=== PATIENT | female | born 1990 | race Caucasian/White ===

== ENCOUNTER 2017-04-09 00:48 | Emergency (ER) | payer SELFPAY ==
--- NOTE | 2017-04-09 00:57 | C.PDOC ---
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 Patient denies fever, chills , nausea, vomiting. Time Seen by Provider: 04/09/17 00:56 History Per: Patient History/Exam Limitations: no limitations Onset/Duration Of Symptoms: Hrs Current Symptoms Are (Timing): Still Present Severity: Mild Pain Scale Rating Of: 3 Quality: Other (+discomfort ). denies: "Pain" Associated Symptoms: denies: Nausea Modifying Factors: None Exacerbating Factors: None Alleviating Factors: None Recent travel outside of the [place]: No Additional History Per: Patient Past Medical History Reviewed: Historical Data, Nursing Documentation, Vital Signs Vital Signs: Last Vital Signs Temp 99.1 F 04/09/17 01:46 Pulse 68 04/09/17 02:01 Resp 14 04/09/17 02:01 BP 107/68 04/09/17 02:01 Pulse Ox 97 04/09/17 02:01 - Medical History PMH: No Chronic Diseases Surgical History: No Surg Hx Family History: States: Unknown Family Hx Review Of Systems Constitutional: Negative for: Fever, Chills Cardiovascular: Positive for: Chest Pain (right-sided ). Negative for: Palpitations Respiratory: Positive for: Shortness of Breath. Negative for: Cough Gastrointestinal: Negative for: Nausea, Vomiting Musculoskeletal: Negative for: Back Pain Skin: Negative for: Rash, Lesions, Jaundice, Bruising Neurological: Negative for: Weakness, Numbness Physical Exam - Physical Exam Appears: Non-toxic, No Acute Distress Skin: Warm, Dry Head: Normacephalic Eye(s): bilateral: Normal Inspection Oral Mucosa: Moist Neck: Supple Chest: Symmetrical, No Deformity, Tenderness (mild, reproducible discomfort to midsternal region ) Cardiovascular: Rhythm Regular, No Murmur Respiratory: No Rales, No Rhonchi, No Wheezing, Other (+patient is speaking in complete sentences ) Back: No Vertebral Tenderness Extremity: Normal ROM, Capillary Refill (less than 2 seconds ) Neurological/Psych: Oriented x3 Gait: Steady ED Course And Treatment - Laboratory Results Result Diagrams: 04/09/17 01:22 04/09/17 01:22 ECG: Interpreted By Me, Viewed By Me ECG Rhythm: Sinus Rhythm (80), Nonspecific Changes (occ pac's) Pulse Ox Interpretation: Normal - Radiology CXR: Interpreted by Me, Viewed By Me CXR Interpretation: No: Infiltrates, Fracture, Pnemothorax Progress Note: EKG and labs ordered and reviewed. Patient received Aspirin PO. Reevaluation Time: 02:44 Reassessment Condition: Improved Disposition Counseled Patient/Family Regarding: Studies Performed, Diagnosis, Need For Followup, Rx Given - Disposition Referrals: [facility] [Outside] Disposition: HOME/ ROUTINE Disposition Time: 00:57 Condition: FAIR Prescriptions: Pantoprazole Sodium [Protonix] 20 mg PO DAILY #15 ect Instructions: Gastroesophageal Reflux Disease (ED) - Clinical Impression Clinical Impression: GERD (gastroesophageal reflux disease), Atypical chest pain - Scribe Statement The provider has reviewed the documentation as recorded by the Scribe (Mar Canales) Provider Attestation: All medical record entries made by the Scribe were at my direction and personally dictated by me. I have reviewed the chart and agree that the record accurately reflects my personal performance of the history, physical exam, medical decision making, and the department course for this patient. I have also personally directed, reviewed, and agree with the discharge instructions and disposition.
[2017-04-09 01:08] VITALS: BMI 17.6
[2017-04-09] MEDS ORDERED: Aspirin 325 mg EC Tablets PO STA (01:08)
[2017-04-09] MEDS ORDERED: Aspirin 325 mg EC Tablets PO ONE (01:20)
[2017-04-09 01:29] LABS: BASO % 0.3 % (0.0-2.0); EOS # 0.1 K/uL (0.0-0.7); EOS % 1.1 % (0.0-4.0); HEMOGLOBIN 12.2 g/dL (11.0-16.0); LYMPH # 3.8 K/uL (1.0-4.3); LYMPH % 44.6 % (20.0-40.0); MEAN CELL VOLUME 81.9 fL (81.0-99.0); MEAN CORPUSCULAR HEMOGLOBIN 26.7 pg (27.0-31.0); MEAN CORPUSCULAR HGB CONC 32.6 g/dL (33.0-37.0); MEAN PLATELET VOLUME 9.2 fL (7.2-11.7); MONO # 0.5 K/uL (0.0-0.8); MONO % 6.1 % (0.0-10.0); NEUT # 4.1 K/uL (1.8-7.0); NEUT % 47.9 % (50.0-75.0); NRBC % 0.1 % (0.0-2.0); RBC 4.56 Mil/uL (3.80-5.20); RED CELL DISTRIBUTION WIDTH 13.8 % (11.5-14.5); WHITE BLOOD COUNT 8.5 K/uL (4.8-10.8)
[2017-04-09 01:32] LABS: ALBUMIN 3.8 g/dL (3.5-5.0)
[2017-04-09 01:35] LABS: ALB/GLOB RATIO 1.2 (1.0-2.1); ALT/SGPT 22 U/L (9-52); AST/SGOT 21 U/L (14-36); BLOOD UREA NITROGEN 11 mg/dL (7-17); GFR AFRICAN-AMERICAN > 60; GFR NON-AFRICAN AMERICAN > 60
[2017-04-09 01:36] LABS: CALCIUM 8.9 mg/dl (8.6-10.4)
[2017-04-09 01:42] LABS: PARTIAL THROMBOPLASTIN TIME 28 SECONDS (21-34); PROTHROMBIN TIME 11.4 SECONDS (9.7-12.2)
[2017-04-09 02:04] LABS: D DIMER < 200 ng/mlDDU (0-243)
[2017-04-09 02:05] LABS: HCG,QUALITATIVE URINE NEGATIVE (NEGATIVE)
[2017-04-09 02:06] LABS: SQUAMOUS EPITHIAL < 1 /hpf (0-5); URINE BACTERIA RARE (<OCC); URINE BILIRUBIN NEGATIVE (NEGATIVE); URINE BLOOD NEGATIVE (NEGATIVE); URINE CLARITY Clear (Clear); URINE COLOR Yellow (YELLOW); URINE GLUCOSE (UA) NORMAL (Normal); URINE LEUKOCYTE ESTERASE NEG Leu/uL (Negative); URINE NITRATE NEGATIVE (NEGATIVE); URINE PROTEIN NEGATIVE (NEGATIVE); URINE UROBILINOGEN NORMAL mg/dL (0.2-1.0)
[2017-04-09 02:53] VITALS: BP 110/64; PULSE 62; RESP 18; TEMP 98; O2SAT 99
--- NOTE | 2017-04-09 09:04 | RAD ---
PROCEDURE: CHEST RADIOGRAPH, 1 VIEW HISTORY: chest pain COMPARISON: None available. FINDINGS: LUNGS: No focal infiltrate or effusion. Small nodular densities at the lung bases may represent nipple shadows. Correlation with nipple markers may be helpful. Bibasilar breast shadows. PLEURA: No pneumothorax or pleural fluid seen. CARDIOVASCULAR: Normal. OSSEOUS STRUCTURES: No significant abnormalities. VISUALIZED UPPER ABDOMEN: Normal. OTHER FINDINGS: None. IMPRESSION: No focal infiltrate or effusion. Small nodular densities at the lung bases may represent nipple shadows. Correlation with nipple markers may be helpful. Bibasilar breast shadows.
--- NOTE | 2017-04-11 14:41 | CARD ---
APPROVED REPORT EKG Measurement Heart [id number] <Conclusion> Sinus rhythm with premature atrial complexes Otherwise normal ECG
== END 2017-04-09 02:53 | disposition home or self-care (01) ==
LOC: C.ER 00:48
DX: K21.9 Gastro-esophageal reflux disease without esophagitis (principal); R07.89 Other chest pain